=== PATIENT | female | born 1990 | race Caucasian/White ===

== ENCOUNTER 2019-11-01 12:51 | Inpatient (IN) | payer OTHER ==
[~2019-11-01] VITALS: Ht 165.1 cm; Wt 87.7 kg
[2019-11-01] VITALS (9 sets, daily range): BP systolic 112–151; BP diastolic 72–88
[2019-11-01] MEDS ORDERED: PREN29TA4 PO (13:30)
[2019-11-01] MEDS ORDERED: BENA25CA4 PO (13:30)
[2019-11-01] MEDS ORDERED: INSUN SC (13:30)
[2019-11-01] MEDS ORDERED: INSULIN IV RATE CHANGE DOCUMENTATION ML/HR XX SCH (13:45)
[2019-11-01] MEDS ORDERED: LR 1,000 ML IV SCH (14:00)
[2019-11-01] MEDS ORDERED: INSULIN HUMAN REGULAR 100 UNITS in NS 99 ML IV SCH (14:00)
[2019-11-01 14:52] LABS: HEMATOCRIT 38.4 % (36.0-47.0); HEMOGLOBIN 13.1 g/dl (12.0-15.5); MEAN CORPUSCULAR HEMOGLOBIN 30.6 pg (27.0-33.0); MEAN CORPUSCULAR HGB CONC 34.1 g/dl (32.0-36.5); MEAN CORPUSCULAR VOLUME 89.7 fl (80.0-96.0); PLATELET COUNT, AUTOMATED 338 10^3/uL (150-450); RED BLOOD COUNT 4.28 10^6/uL (4.00-5.40); WHITE BLOOD COUNT 16.5 10^3/uL (4.0-10.0)
[2019-11-01 15:12] LABS: BLOOD UREA NITROGEN 9 MG/DL (7-18); CALCIUM LEVEL 8.6 MG/DL (8.5-10.1); CARBON DIOXIDE LEVEL 23 MEQ/L (21-32); CHLORIDE LEVEL 111 MEQ/L (98-107); CREATININE FOR GFR 0.66 MG/DL (0.55-1.30); GLOMERULAR FILTRATION RATE > 60.0 (>60); GLUCOSE, FASTING 111 MG/DL (70-100); POTASSIUM SERUM 3.8 MEQ/L (3.5-5.1); SODIUM LEVEL 141 MEQ/L (136-145)
[2019-11-01] MEDS: miSOPROStol 25 MCG 1/4 TAB (S0191) SL SCH ×3 (15:26→23:50)
--- NOTE | 2019-11-01 15:56 | HPEPDOC ---
Obstetrical History & Physical General Date of Admission Nov 01, 2019 at 12:51 History of Present Illness patient is a 29 yo G1 @ 39+1wks gestation by LMP LORIE [id number] with GDMA2 on insulin presents for IOL. patient is currently on NPH 10u qhs. she has no concerns today. Information Provided By: Patient Age: 29 : 1 Term: 0 Pre-term: 0 Abortions: 0 Livin Care Care: Good Care Dating Final EDC: Nov 07, 2019 Final EDC for Daily Update: Nov 07, 2019 Final EDC by: LMP Past Medical History Past Obstetrical History : Past Obstetrical History: Primgravida Past Medical History Medical History denies Surgical History: Denies/None Social History Marital Status: Family situation: Spouse/partner home * Smoker: former Smoker Alcohol: Denies Drugs: denies Imunizations Tdap status: current Influenza Status: current Allergies Coded Allergies: No Known Allergies (Unverified , 11/01/19) Medications Scheduled Diphenhydramine HCl (Benadryl) 25 Mg Capsule, 50 MG PO QPM Prenat 115/Iron Fum/Folic/Dss ( 19 Tablet) 1 Each Tablet, 1 TAB PO DAILY Miscellaneous Medications Insulin Human NPH (Novolin N) 100 Unit/1 Ml Vial, 1 UNITS SC Physical Examination Physical Examination GENERAL: Alert and oriented times three. BREAST: . ABDOMEN: Gravid and non-tender to touch. FETUS: fetus is vertex (VTX) by Serafin and US. HEART RATE: Regular rate and rhythm. LUNGS: Clear to auscultation (CTA). EXTREMITIES: No edema/erythema/tenderness EFW:3400gm Vital Signs/I&O Vital Signs Date Time Temp Pulse Resp B/P (MAP) Pulse Ox O2 Delivery O2 Flow Rate FiO2 11/01/19 14:33 108 16 133/77 (95) 11/01/19 13:12 98.0 98 Room Air Laboratory Data 24H LABS Laboratory Tests 2 11/01/19 13:24: Serology Scanned Report Hepatitis B Testing 11/01/19 14:17: Bedside Glucose (Misc Panel) 112H 11/01/19 14:32: Nucleated Red Blood Cells % (auto) 0.0, Anion Gap 7L, Glomerular Filtration Rate > 60.0, Calcium Level 8.6 CBC/BMP Laboratory Tests 11/01/19 14:32 Pertinent Laboratoy Data Blood Type: O+ RBC Antibody Screen: Negative HIV: Negative Hepatitis B: Negative Rapid Plasma Reagin: Nonreactive Rubella: Immune Chlamydia/Gonorrhea: Negative Group B Streptococcus: Negative Glucose Tolerance Test: 143 (3hr: 100/194/158/142) Anatomy Ultrasound Placenta Location: Anterior Normal Anatomy: Yes Placenta Previa: No Vaginal Examination Dilation: None Station: Other Cervical Consistency: Firm Cervical Position: Posterior Presentation: Cephalic presentation Assessment Heart Rate (FHR): 155 Variability: Moderate Accelerations: Positive Decelerations: None Tocometer Contractions: No Assessment/Plan Assessment Patient is a 29 yo G1 @ 39+1wks gestation with GDMA2 on insulin admitted for IOL. Explained process of induction with patient starting with cervical ripening using medication and taylor balloon follows by AROM as well as oxytocin as indicated. External as well as internal monitoring of contractions and FHT discussed. Risks of emergent delivery, infection requiring antibiotics, bleeding requiring blood transfusion and associated risks, use of forceps or vacuum for operative vaginal delivery in an emergency, and episiotomy explained to patient. 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 Diet: Diabetic diet Group B Streptococcus (GBS) negative. Labs and intravenous (IV) per unit protocol. insulin drip protocol for GDMA2 Start IOL with cytotec then taylor bulb and pit as indicated pelvis adequate for trial of labor. DO JUANY james LUAT N. DO Nov 01, 2019 15:30
[2019-11-01] MEDS ORDERED: PROMETHAZINE INJ 25 MG/ML VIAL (J2550) IV ONE (22:00)
[2019-11-01] MEDS ORDERED: BUTORPHANOL 2 MG/ML INJ (J0595) IV ONE (22:00)
[2019-11-02] VITALS (26 sets, daily range): BP systolic 104–145; BP diastolic 55–89
[2019-11-02] MEDS: miSOPROStol 25 MCG 1/4 TAB (S0191) SL SCH ×5 (04:23→20:00)
[2019-11-02] MEDS ORDERED: BUTORPHANOL 2 MG/ML INJ (J0595) IV ONE (04:45)
[2019-11-02] MEDS: NS 1,000 ML IV SCH ×5 (14:00→22:00)
[2019-11-02] MEDS ORDERED: hydrOXYzine 50 MG TAB PO ONE (16:00)
--- NOTE | 2019-11-02 18:35 | IPN ---
DATE: 11/02/2019 A 29-year-old 1 at 39 and 1 weeks of gestation was admitted for induction of labor being a GDMA 2, on insulin. She was on NPH of 10 units at bedtime. Other than that she had no other significant risk factors. Blood type is O positive. Rest of the lab results are within normal limits. To date she had four lots of Cytotec, which was for cervical ripening. After her last dose she still maintained a cervix which was is closed, thick, and high. She does have polyhydramnios based on a more recent ultrasound. Presently the patient feels exhausted, and we did not entertain another lot of Cytotec. We explained to the patient that she has a category 1 strip. She has had two lots of intravenous (IV) medications for what she considers significant pain despite the fact she is having palpated contractions that are mild and do not meet the criteria of moderate or even severe with 100 Frannie units, so the plan of management was to allow her to rest, hydrate her, and when she wakes up from her sleep to attempt using Pitocin. On the last pelvic examination, the cervix was not negotiable for a Harrison bulb Harrison catheter. Her hemoglobin is 13.1, hematocrit 38.4, platelets are 338. She did not require an insulin drip. Her fasting sugars were 111. The rest the electrolytes were within normal limits, and her GFR is greater than 60. Her fingersticks, which were every 2 hours, were 79, 84, 82, 91, and 82. We have extended her glucose testing to every 4 hours. She is refusing to eat. She refuses to have a shower or get out of bed. Therefore, we are going to allow her to rest because of maternal exhaustion, and the plan of care moving forward will be Pitocin followed by an epidural followed by an artifical rupture of membranes (AROM). It is safe to proceed at the present time.
[2019-11-02] MEDS ORDERED: FENTANYL 2MCG/ML ROPIVACAINE 0.2% IN 0.9% NACL 100ML IVBAG As Ordered ONE (19:57)
[2019-11-02] MEDS ORDERED: diphenhydrAMINE INJ 50MG/ML VIAL (J1200) IV PRN (20:50)
[2019-11-02] MEDS ORDERED: NALOXONE INJ 0.4 MG/1 ML VIAL (J2310) IV PRN (20:50)
[2019-11-02] MEDS ORDERED: ONDANSETRON 4MG/2ML VIAL (J2405) IV PRN (20:50)
[2019-11-02] MEDS: FENTANYL/ROPIVACAINE/NACL BAG 100 ML EPIDURAL SCH (20:50)
[2019-11-02] MEDS ORDERED: LACTATED RINGER'S 1000 ML IV PRN (20:50)
[2019-11-02] MEDS ORDERED: REFRIGERATOR IV KEYS XX PRN (20:50)
[2019-11-02] MEDS ORDERED: EPIDURAL COMMENT XX SCH (20:50)
[2019-11-02] MEDS ORDERED: EPIDURAL/PCA KEYS XX PRN (20:50)
[2019-11-02] MEDS ORDERED: diphenhydrAMINE 50 MG CAP PO STA (21:34)
[2019-11-02] MEDS ORDERED: OXYTOCIN DRIP 30 UNITS in IV 1 EA IV SCH (21:45)
[2019-11-02] MEDS ORDERED: HumuLIN N INSULIN (NovoLIN N) PER UNIT SC SCH (22:00)
[2019-11-03] VITALS (29 sets, daily range): BP systolic 72–134; BP diastolic 50–81
[2019-11-03] MEDS: ePHEDrine SULFATE 25 MG/5 ML(5MG/ML) SYRINGE IV PRN ×2 (03:01→03:07)
[2019-11-03] MEDS: miSOPROStol 25 MCG 1/4 TAB (S0191) SL SCH ×2 (04:00)
[2019-11-03] MEDS: NS 1,000 ML IV SCH ×3 (06:00→17:30)
[2019-11-03] MEDS: FENTANYL/ROPIVACAINE/NACL BAG 100 ML EPIDURAL SCH ×2 (07:15→15:59)
--- NOTE | 2019-11-03 09:06 | IPNPDOC ---
Text Note Date of Service The patient was seen on 11/03/19. NOTE assumed care from Dr. Handy. patient induction restarted again after she received her epidural yesterday evening. She was fingertip at that time. After epidural, pitocin was started. This AM patient is comfortable. she think her water broke aroun 0830. pit: 10mU/min vitals: normal NAD fht: 150/mod mila/pos accel/no decel toco: ctx q3mins pelvic exam: grossly ruptured with clear fluid ce: /-2, taylor bulb placed with 80cc placed vaginally. a/p patient not in labor. cervical ripening with taylor bulb and pit. continue to monitor. Le, DO VS,Fishbone, I+O VS, Fishbone, I+O Vital Signs Date Time Temp Pulse Resp B/P (MAP) Pulse Ox O2 Delivery O2 Flow Rate FiO2 11/03/19 07:25 99.5 80 18 100/59 (73) Room Air 11/01/19 13:12 98 I&O- Last 24 Hours up to 6 AM 11/03/19 06:00 Intake Total 1697 ml Balance 1697 ml MARK HARRINGTON DO Nov 03, 2019 09:06
--- NOTE | 2019-11-03 14:27 | IPN ---
DATE: 11/02/2019 A 29-year-old 1 at 39-1 weeks' gestation was admitted for induction of labor because of being in a gestational diabetes mellitus (GDM) A2. She had four lots of Cervidil, which was ineffective. She currently is on NPH 10 units at bedtime. She has had fingersticks every 2-4 hours, which have been within normal limits. She has an acute and extreme anxiety disorder, which makes it extremely difficult to: A) Evaluate the patient and B) To progress with induction of labor. We elected, after having a lengthy discussion, to do an epidural followed by a pelvic examination, possibility of an artificial rupture of membranes (AROM) and/or Harrison bulb catheter and Pitocin. The patient had any acute attack when merely flushing the intravenous (IV) catheter in her arm and required sedation in order to calm her down. She also had two doses of Stadol and Phenergan. She did sleep with her antianxiety medications. Upon awakening, she did express the consent to have the epidural, which went reasonably well, after which we examined her. She was found to be a fingertip posterior -3 station, very long and closed, was not amenable to either an AROM or a Harrison bulb catheter. She is matt every six minutes of moderate intensity with a category one strip. Presently, she has an acute tachycardia because of an extreme anxiety issue. Temperature is 99.2. Our plan of management is to start the Pitocin, reevaluate her in two hours or possible AROM or Harrison bulb initiation. The patient expressed understanding despite her anxiety attack at the present time and a Harrison catheter is being placed in her bladder in order to keep of the bladder drained and monitor her output. The patient will receive her 10 units of NPH at bedtime and continue monitoring with fingersticks.
--- NOTE | 2019-11-03 15:06 | IPN ---
DATE: This lady is 29-year-old, 1 at 39 and 2 weeks of gestation was admitted for induction of labor. Gestational diabetes mellitus (GDM) A2, to presently on NPH at bedtime, is well controlled. Her significant risk factors, she has got extreme anxiety. She had four lots of Cytotec. The plan of care was to place an epidural and attempt Pitocin and artificial rupture of membranes (AROM); however, she was so anxious and out of control that it took us more than four hours to get her into a psychological space where we could do this. She has had two lots of Stadol. She has had one of hydroxyzine. She slept for two and half hours, then on awakening she did claim that it did nothing for her. However, she was amenable to having an epidural placed. After the epidural was placed, examination revealed the cervix which was fingertip posterior and the baby was a -3 station. She had Pitocin running overnight, maximum of 12 milliunits per minute. Baby had some occasional late decelerations, positional change and hydration fix at episode. Baby appears to like the left side and not the right side. We examined her this morning with contractions moderate intensity. She has changed her cervix. She is now about 80% effaced, fingertip anterior. We attempted to rupture membranes, were unable to get through that cervix at the present time. The patient did have one deceleration late at that time off examination and attempted AROM. Again, repositioned, placed on the left side, hydrated, baby went back to a category one strip. Plan at the present time is make sure baby is stabilized and the possibility of a primary section because of failure to dilate, failure to descend and intermittent late decelerations may be entertained.
--- NOTE | 2019-11-03 20:33 | IPNPDOC ---
Text Note Date of Service The patient was seen on 11/03/19. NOTE Was called at home and notified that patient has been pushing and is needed immediately for pending delivery. I was taking call at home. Arrived to hospital 20 minutes after call and Dr. Hale had attended delivery. uncomplicated otherwise. Le, DO VS,Fishbone, I+O VS, Fishbone, I+O Vital Signs Date Time Temp Pulse Resp B/P (MAP) Pulse Ox O2 Delivery O2 Flow Rate FiO2 11/03/19 18:35 99.3 72 17 104/58 (73) 11/03/19 07:25 Room Air 11/01/19 13:12 98 I&O- Last 24 Hours up to 6 AM 11/03/19 06:00 Intake Total 1697 ml Balance 1697 ml MARK HARRINGTON DO Nov 03, 2019 20:33
--- NOTE | 2019-11-03 21:15 | DNPDOC ---
[facility] Delivery Note Delivery Note DATE OF DELIVERY: 11/03/2019 PREDELIVERY DIAGNOSIS: 1) 39+2/7 weeks' gestation and labor. 2) GDMA2 on insulin POST DELIVERY DIAGNOSIS: 1) delivered 2) GDMA2 PROCEDURE: Spontaneous vaginal delivery DATABASE COORDINATOR: Dr. Christina Spangler DO ANESTHESIA: epidural ESTIMATED BLOOD LOSS: 250mL. FINDINGS: 7lbs 13oz female infant, Score 9/10 DELIVERY SUMMARY: Baby had delivered prior to my arrival. Pitocin bolus started. Placenta delivered spontaneously. Fundus massaged firm. Inspection revealed midline abrasion, not requiring repair. Baby and mother bonding when I left the room. EBL 250cc. DO JUANY Spangler LUAT N. DO Nov 03, 2019 21:15
[2019-11-03] MEDS ORDERED: OXYTOCIN DRIP 30 UNITS in IV 1 EA IV SCH (21:46)
[2019-11-03] MEDS ORDERED: DOCUSATE SODIUM 100 MG CAP PO PRN (22:00)
[2019-11-03] MEDS ORDERED: DIBUCAINE 1% OINTMENT 30GM TOP PRN (22:00)
[2019-11-03] MEDS ORDERED: RHOGAM 300 MCG (1500 IU) INJ (J2790) IM SCH (22:00)
[2019-11-03] MEDS ORDERED: MEASLES,MUMPS,RUBELLA VACCINE INJ (MMR-II) (90707) SC SCH (22:00)
[2019-11-03] MEDS: IBUPROFEN 800 MG TAB PO PRN (22:37)
[2019-11-03] MEDS: ACETAMINOPHEN TAB 650MG DOSE (2X325MG) PO PRN (23:53)
[2019-11-04] MEDS: IBUPROFEN 800 MG TAB PO PRN ×3 (06:30→21:59)
[2019-11-04 06:36] VITALS: BP 110/75
--- NOTE | 2019-11-04 06:37 | IPNPDOC ---
Progress Note Date of Service: Nov 04, 2019 Day#: 1 Progress Note SUBJECT: Patient is a 29 yo s/p ppd #1. Patient reports her right leg still feels numb. She is able to move all her toes, no trouble ambulating. She has been ambulating, voiding spontaneously without issue and tolerating regular diet. Patient would like to breast feeding. she has started on formula feeding. Desires oral contraceptive. OBJECTIVE: VITAL SIGNS: Within normal limits, afebrile. Alert and oriented times three. Abdomen: Fundus firm at U. Soft, NTTP. LE: mild non pitting edema, symmetrical, no erythema/tenderness muscle strength: 5/5 bilaterally of LE. A/P ppd #1, doing well. Encourage ambulation and breast feeding. recommends placing baby on breast first prior to using bottle. consult. contraceptive counseling. will discharge home with norqd, patient instructed to get different OCP if she does not bottle feed. continue routine ppc. anticipate d/c home on ppd#2. Crys, DO VS, I&O, 24H, Javier Vital Signs/I&O Vital Signs Date Time Temp Pulse Resp B/P (MAP) Pulse Ox O2 Delivery O2 Flow Rate FiO2 11/03/19 23:40 100.1 86 16 118/64 (82) 11/03/19 07:25 Room Air 11/01/19 13:12 98 I&O- Last 24 Hours up to 6 AM 11/04/19 06:00 Intake Total 6025 ml Output Total 2250 ml Balance 3775 ml Laboratory Data 24H LABS Laboratory Tests 2 11/03/19 10:27: Bedside Glucose (Misc Panel) 65L 11/03/19 13:11: Bedside Glucose (Misc Panel) 81 11/03/19 15:36: Bedside Glucose (Misc Panel) 58L 11/03/19 17:26: Bedside Glucose (Misc Panel) 88 11/04/19 06:20: Bedside Glucose (Misc Panel) 74 MARK HARRINGTON DO Nov 04, 2019 06:37
[2019-11-04] MEDS: PRENATAL VITAMINS CHEWABLE TABLET PO SCH (09:45)
[2019-11-04] MEDS: ACETAMINOPHEN TAB 650MG DOSE (2X325MG) PO PRN ×2 (09:45→20:26)
[2019-11-04 17:58] VITALS: BP 126/76
[2019-11-05] MEDS: ACETAMINOPHEN TAB 650MG DOSE (2X325MG) PO PRN ×2 (00:42→08:27)
[2019-11-05 06:11] VITALS: BP 104/69
[2019-11-05] MEDS: IBUPROFEN 800 MG TAB PO PRN ×2 (06:13→13:03)
--- NOTE | 2019-11-05 06:41 | IPNPDOC ---
Progress Note Date of Service: Nov 05, 2019 Day#: 2 Progress Note SUBJECT: Patient is a 29 yo s/p ppd #2. Patient reports her right f oot still feels numb. Improved from yesterday. She is ambulating without problem. Anesthesia will come and evaluate her this AM. She has been ambulating, voiding spontaneously without issue and tolerating regular diet. Patient would like to breast feeding. she has started on formula feeding. Desires oral contraceptive. OBJECTIVE: VITAL SIGNS: Within normal limits, afebrile. Alert and oriented times three. Abdomen: Fundus firm at U. Soft, NTTP. LE: mild non pitting edema, symmetrical, no erythema/tenderness muscle strength: 5/5 bilaterally of LE. A/P ppd #2, doing well. Encourage ambulation and breast feeding. discharge i nstructions. continue routine ppc. anticipate d/c home today. Le, DO VS, I&O, 24H, Fishbone Vital Signs/I&O Vital Signs Date Time Temp Pulse Resp B/P (MAP) Pulse Ox O2 Delivery O2 Flow Rate FiO2 11/05/19 06:11 97.9 60 20 104/69 (81) 96 11/03/19 07:25 Room Air I&O- Last 24 Hours up to 6 AM0 11/05/19 06:00 Intake Total 500 ml Balance 500 ml MARK HARRINGTON DO Nov 05, 2019 06:41
--- NOTE | 2019-11-05 06:42 | OBDS ---
[facility] Obstetrical Discharge Sum. Obstetrical Discharge Summary Liner Man/Provider: MARK HARRINGTON DO : 1 Term: 1 Pre-term: 0 Abortions: 0 Livin VDRL: Non-Reactive Rh: Positive Rubella: Immune Sex: Female Weight: pounds (7), ounces (13) Anesthesia: Regional Anesthesia A/P, Post Course List any complications Admission diagnosis: 1) gravid at 39+1wks 2) GDMA2 Discharge diagnosis: 1) 2) GDMA2 Condition at Discharge: stable Discharge Instructions: Home Activity: as tolerated Diet: regular Medications: filled at [facility] Follow-up: 2wks Hospital course: Patient was admitted for induction of labor at 39+1 wks gestation for GDMA2. She progressed to have a spontaneous vaginal delivery. course uncomplicated. Patient discharged on day #2. MARK HARRINGTON DO Nov 03, 2019 21:20
[2019-11-05] MEDS: PRENATAL VITAMINS CHEWABLE TABLET PO SCH (08:25)
[2019-11-05] MEDS ORDERED: DIBU10OI TOP (12:14)
[2019-11-05] MEDS ORDERED: IBUP80TA PO (12:14)
[2019-11-05] MEDS ORDERED: DOCU100C16 PO (12:14)
== END 2019-11-05 13:20 | disposition home or self-care (01) | DRG 807 ==
LOC: M LDI 12:51 → M OBS 11-03 23:24
PROVIDERS: ADMIT Obstetrics & Gynecology; ATTEND Obstetrics & Gynecology
PROC: 3E0P7GC Introduction of Other Therapeutic Substance into Female Reproductive, Via Natural or Artificial Opening (ICD-10-PCS; 2019-11-01)
PROC: 10E0XZZ Delivery of Products of Conception, External Approach (ICD-10-PCS; principal; 2019-11-03)
DX: O24.424 Gestational diabetes mellitus in childbirth, insulin controlled (principal); Z37.0 Single live birth; Z3A.39 39 weeks gestation of pregnancy; O40.3XX0 Polyhydramnios, third trimester, not applicable or unspecified; O99.344 Other mental disorders complicating childbirth; F41.9 Anxiety disorder, unspecified

== ENCOUNTER 2020-09-23 13:12 | Inpatient (IN) | payer OTHER ==
[~2020-09-23] VITALS: Ht 165.1 cm; Wt 83.4 kg
[~2020-09-23 13:12] MED LIST: BENA25CA4 PO; DIBU10OI TOP; DOCU100C16 PO; IBUP80TA PO; INSUN SC; PREN29TA4 PO
[2020-09-23 13:29] VITALS: BP 136/83
[2020-09-23] MEDS ORDERED: ZOLO50TA PO (13:39)
[2020-09-23] MEDS ORDERED: ACET-683 PO (13:39)
[2020-09-23] MEDS ORDERED: BAKING SODA PO (13:40)
[2020-09-23] MEDS ORDERED: LR 1,000 ML IV SCH (15:09)
[2020-09-23] MEDS ORDERED: NOVOINJ13 SC (15:11)
[2020-09-23 16:02] VITALS: BP 114/69
[2020-09-23 16:19] LABS: GLUCOSE,RANDOM 78 MG/DL (LESS THAN 200)
--- NOTE | 2020-09-23 17:10 | HPEPDOC ---
Obstetrical History & Physical General Date of Admission Sep 23, 2020 at 13:12 History of Present Illness 30yo krys [id number] @39+2, O+, GBS-, presenting for IOL for A2GDM Chief Complaint: Other (A2GDM) Information Provided By: Patient Age: 30 : 2 Term: 1 Pre-term: 0 Abortions: 0 Livin Care Care: Good Care Dating Final EDC: Sep 28, 2020 Final EDC for Daily Update: Sep 28, 2020 Final EDC by: 1st trimester (US) 1st Trimester Date: Feb 21, 2020 Weeks + Days: 8 (+4) Estimated Date of Confinement: Sep 28, 2020 EGA at Admission: 39 (+2) Antepartum Course Diagnos(e)s A2GDM, close interval , anxiety Height (inches): 65 Pre- weight (lbs.): 160 Admission Weight (lbs.): 184 Change in Weight (lbs.): 24 Past Medical History Past Obstetrical History : Past Obstetrical History: Multigravida Date of Delivery: Nov 03, 2019 Gestation: 39 (+2) Type of Delivery: Spontaneous Vaginal Del. Weight of Infant (grams): 3500 Past Medical History Medical History migraines, A2GDM, varicose veins Surgical History: Denies/None Family History Significant Family History: No pertinent family hx Social History Marital Status: Family situation: Spouse/partner home Psychosocial History: Anxiety * Smoker: non-smoker Alcohol: Denies Drugs: denies Imunizations Tdap status: current Allergies Coded Allergies: No Known Allergies (Unverified , 11/01/19) Medications Scheduled Insulin NPH Human Isophane (Novolin N) 100 Unit/1 Ml Vial, 8 UNITS SC QHS Prenat 115/Iron Fum/Folic/Dss ( 19 Tablet) 1 Each Tablet, 1 TAB PO DAILY Sertraline Hcl (Zoloft) 50 Mg Tablet, 1 TAB PO DAILY Scheduled PRN Acetaminophen (Acetaminophen) 500 Mg Tablet, 1-2 TABS PO Q6HP PRN for DISCOMFORT [Baking Soda] , 1 TSP PO QHSP PRN for INDIGESTION Physical Examination Physical Examination GENERAL: Alert and oriented times three. BREAST: . ABDOMEN: Gravid and non-tender to touch. FETUS: Is vertex (VTX) by sterile vaginal examination (SVE), fetus is vertex (VTX) by Serafin, confirmed on TAUS. HEART RATE: Regular rate and rhythm. LUNGS: Clear to auscultation (CTA). EXTREMITIES: No edema. No clonus. Vital Signs/I&O Vital Signs Date Time Temp Pulse Resp B/P (MAP) Pulse Ox O2 Delivery O2 Flow Rate FiO2 09/23/20 13:30 110 99 Room Air 09/23/20 13:29 98.3 20 136/83 (100) Laboratory Data 24H LABS Laboratory Tests 2 09/23/20 13:18: Serology Scanned Report Hepatitis B Testing 09/23/20 15:29: CBC/BMP Urine Culture: No Growth Pertinent Laboratoy Data Blood Type: O+ RBC Antibody Screen: Negative HIV: Negative Hepatitis B: Negative Rapid Plasma Reagin: Nonreactive Rubella: Immune Varicella: Immune Chlamydia/Gonorrhea: Negative Group B Streptococcus: Negative Quad Screen Test: Negative Cystic Fibrosis: Negative Anatomy Ultrasound Placenta Location: Anterior Normal Anatomy: Yes Placenta Previa: No Vaginal Examination Dilation: 3 cm (cervical catheter placed and filled to 60/60 with exam) Effacement: 50% Station: -2 Cervical Consistency: Medium Cervical Position: Posterior Presentation: Cephalic presentation Position: Vertex (occiput) Assessment Heart Rate (FHR): 140 Variability: Moderate Accelerations: Positive Decelerations: None Tocometer Contractions: Yes Frequency: irregular Duration: less than 60 seconds Strength: palpated as mild, resting tone palp/soft Multi-drug resistant Organism: No history of MDRO Assessment/Plan Assessment Annetta is a 30-year-old (G)2 para (P)1 at 39+2 weeks by 8+4-week ultrasound. Presents to Labor and Delivery (L&D) for IOL for A2GDM. Plan Admit and orient. Trouble Lineman and consent for labor and delivery. Diet: clear liquid. Group B Streptococcus (GBS) negative. Labs and intravenous (IV) per unit protocol. Counseled on Pitocin and induction of labor (IOL) and cervical catheter. Lactated Ringers (LR): at 125 mL/hr. Anticipate normal spontaneous delivery (). C-S as appropriate. DARRELL SWENSON CNM Sep 23, 2020 17:10
[2020-09-23] MEDS ORDERED: OXYTOCIN DRIP 30 UNITS in IV 1 EA IV SCH (17:45)
[2020-09-23 17:48] VITALS: BP 119/64
[2020-09-23 18:17] VITALS: BP 121/70
[2020-09-23 18:28] LABS: HEMATOCRIT 39.3 % (36.0-47.0); HEMOGLOBIN 13.2 g/dl (12.0-15.5); MEAN CORPUSCULAR HEMOGLOBIN 30.7 pg (27.0-33.0); MEAN CORPUSCULAR HGB CONC 33.6 g/dl (32.0-36.5); MEAN CORPUSCULAR VOLUME 91.4 fl (80.0-96.0); PLATELET COUNT, AUTOMATED 183 10^3/uL (150-450); WHITE BLOOD COUNT 14.1 10^3/uL (4.0-10.0)
[2020-09-23 18:48] VITALS: BP 121/66
[2020-09-23 20:03] VITALS: BP 133/71
[2020-09-23] MEDS ORDERED: CALCIUM CARBONATE 500 MG CHEW U/D PO ONE (20:15)
[2020-09-23] MEDS ORDERED: GLUCOSE 4GM CHEW TABLET PO PRN (20:15)
[2020-09-23] MEDS ORDERED: DEXTROSE 50% 50 ML SYRINGE IV PRN (20:15)
[2020-09-23] MEDS ORDERED: GLUCAGON INJ 1MG VIAL SC PRN (20:15)
--- NOTE | 2020-09-23 21:44 | IPNPDOC ---
Text Note Date of Service The patient was seen on 09/23/20. NOTE Accepting care of Annetta this evening. She's a 30 yo at 39+2 weeks gestation who was admitted for an IOL for GDMA2. She requires 8u NPH nightly to control her blood sugars. Her induction was started just recently with a cook balloon and low dose pitocin. FHR Cat I with moderate variability, +accels, no decels. Most recent blood sugar was 92. Will check Q2H for now. ISS has been ordered for coverage. Plan to continue with pitocin. Epidural anesthesia if and when desired. All patient questions answered. Charisse Abel DO VS,Javier, I+O VS, Javier, I+O Laboratory Tests 09/23/20 15:29 Vital Signs Date Time Temp Pulse Resp B/P (MAP) Pulse Ox O2 Delivery O2 Flow Rate FiO2 09/23/20 20:03 83 133/71 (91) 09/23/20 18:48 16 09/23/20 17:48 98.8 98 Room Air CHARISSE ABEL DO Sep 23, 2020 21:44
[2020-09-23] MEDS ORDERED: FENTANYL 2MCG/ML ROPIVACAINE 0.2% IN 0.9% NACL 100ML IVBAG As Ordered ONE (21:57)
[2020-09-23] MEDS ORDERED: NALOXONE INJ 0.4MG/1ML VIAL (J2310 PER 1MG) IV PRN (23:15)
[2020-09-23] MEDS ORDERED: diphenhydrAMINE 50MG/ML VIAL (J1200) IV PRN (23:15)
[2020-09-23] MEDS ORDERED: REFRIGERATOR IV KEYS XX PRN (23:15)
[2020-09-23] MEDS ORDERED: LACTATED RINGER'S 1000 ML IV PRN (23:15)
[2020-09-23] MEDS ORDERED: EPIDURAL/PCA KEYS XX PRN (23:15)
[2020-09-23] MEDS ORDERED: EPIDURAL COMMENT XX SCH (23:15)
[2020-09-23] MEDS ORDERED: ONDANSETRON 4MG/2ML VIAL IV PRN (23:15)
[2020-09-23] MEDS ORDERED: FENTANYL/ROPIVACAINE/NACL BAG 100 ML EPIDURAL SCH (23:15)
[2020-09-24] VITALS (28 sets, daily range): BP systolic 85–130; BP diastolic 48–73
[2020-09-24] MEDS: ePHEDrine SULFATE 25 MG/5 ML(5MG/ML) SYRINGE IV PRN ×2 (00:57→01:19)
[2020-09-24] MEDS ORDERED: ACETAMINOPHEN TAB 650MG DOSE (2X325MG) PO PRN (05:00)
[2020-09-24] MEDS ORDERED: OXYTOCIN DRIP 30 UNITS in IV 1 EA IV SCH (05:00)
[2020-09-24] MEDS ORDERED: DOCUSATE SODIUM 100MG CAPSULE PO PRN (05:00)
[2020-09-24] MEDS ORDERED: MEASLES,MUMPS,RUBELLA VACCINE INJ (MMR-II) (90707) SC SCH (05:00)
[2020-09-24] MEDS ORDERED: RHOGAM 300 MCG (1500 IU) INJ (J2790) IM SCH (05:00)
[2020-09-24] MEDS ORDERED: PROMETHAZINE 25 MG TAB PO PRN (05:00)
[2020-09-24] MEDS ORDERED: BENZOCAINE 20% HEMORRHOIDAL OINTMENT 28GM TUBE TOP PRN (05:00)
[2020-09-24] MEDS ORDERED: IBUPROFEN 800 MG TAB PO PRN (05:00)
--- NOTE | 2020-09-24 05:07 | DNPDOC ---
[facility] Delivery Note Delivery Note DATE OF DELIVERY: 24Sep2020 at ~0430 PREDELIVERY DIAGNOSIS: 39+3 weeks gestation and IOL for GDMA2 POST DELIVERY DIAGNOSIS: Delivered. PROCEDURE: Spontaneous vaginal delivery INTERNAL AUDIT MANAGER: Dr. Abel ANESTHESIA: Neuraxial (Epidural). ESTIMATED BLOOD LOSS: 200 mL. FINDINGS: 7 pound 9 ounce (3430 grams) female , Score 9/9 DELIVERY SUMMARY: Annetta progressed steadily with pitocin and ultimately received an epidural. Her membranes spontaneously ruptured (clear fluid) and she felt a strong urge to push. The bed was broken down and she was prepped for delivery. With excellent effort over only about 10 minutes of pushing, her baby delivered. Presentation was JORGE with restitution to LOT. The right anterior shoulder then delivered with gentle traction followed easily by the remainder of the body. The infant was dried and stimulated on the field and a bulb suction was used. The was placed on the maternal abdomen and cried vigorously. The three vessel umbilical cord was then clamped and cut by the FOB after appropriate time delay and under my direction. Third stage was completed with gentle traction on on the cord and it was productive of an intact placenta. The uterus was firmed with massage and pitocin was administered IV bolus. Inspection of the cervix, vagina, labia, and perineum revealed a midline first degree perineal laceration. This was repaired with 3-0 vicryl suture in the usual fashion. There was excellent cosmesis and hemostasis after the repair. The fundus was palpated again and was firm. Sponge, instrument, and needle counts were correct X2. Mother and stable when I left the room. DO CLOVER Mitchell CHRISTOPHER J. DO Sep 24, 2020 05:07
[2020-09-24] MEDS ORDERED: HumaLOG INSULIN (NovoLOG) PER UNIT SC SCH (07:30)
[2020-09-24] MEDS: PRENATAL VITAMINS CHEWABLE TABLET PO SCH (07:37)
[2020-09-24] MEDS: IBUPROFEN 600MG TAB PO PRN ×2 (07:38→19:40)
[2020-09-24] MEDS: ACETAMINOPHEN 500 MG TAB PO PRN ×2 (10:35→18:51)
[2020-09-24] MEDS ORDERED: SERTRALINE HCL 50 MG TAB PO SCH (21:00)
[2020-09-25] MEDS: ACETAMINOPHEN 500 MG TAB PO PRN (00:54)
[2020-09-25 06:00] VITALS: BP 115/66
--- NOTE | 2020-09-25 07:11 | IPNPDOC ---
Progress Note Date of Service: Sep 25, 2020 Day#: 1 Progress Note SUBJECT: 30-year-old 2 now Para 2 status post uncomplicated spontaneous vaginal delivery at 39.3 weeks' of a MALE 7 pounds 9 ounces 3430 grams) with post vaginal laceration and repair, doing well day # 1 . She has been ambulating, voiding spontaneously without issue and tolerating regular diet. Breast feeding without issue. Reports lochia is [like a normal period]. Patient is ambulating well. [Reports some cramping with . Denies any pain. Voiding and stooling without difficulty]. OBJECTIVE: VITAL SIGNS: Within normal limits, afebrile. Alert and oriented times three. Breath sounds clear to auscultation. Heart rate: Regular rate and rhythm, no murmurs, rubs or gallops. Abdomen: Fundus firm at U-2. Soft, NTTP. [Minimal] lochia. ASSESSMENT: 30 -year-old 2 now Para 2 status post uncomplicated spontaneous vaginal delivery after presenting FOR IOL AT 39 WEEKS AGDM 2 INSULIN , delivered 39.3 weeks', doing well on day 1 . Vitals within normal limits, afebrile, hemodynamically stable with no evidence of infection. PLAN: 1. Discharge to home today. 2. Tylenol and Motrin for pain. 3. Encourage breast feeding and ambulation. 4.DISCUSS AT 6 WEEK PP VISIT . 5. Routine PP visit in 6 weeks in clinic. 6. Discussed return precautions at length. Item Value Date Time White Blood Count 14.1 10^3/uL H 09/23/20 1529 Red Blood Count 4.30 10^6/uL 09/23/20 1529 Hematocrit 39.3 % 09/23/20 1529 Hemoglobin 13.2 g/dl 09/23/20 1529 Mean Corpuscular Volume 91.4 fl 09/23/20 1529 Mean Corpuscular Hemoglobin 30.7 pg 09/23/20 1529 Mean Corpuscular Hemoglobin Concent 33.6 g/dl 09/23/20 1529 Red Cell Distribution Width 13.1 % 09/23/20 1529 Platelet Count 183 10^3/uL 09/23/20 1529 Nucleated Red Blood Cells % (auto) 0.0 % 09/23/20 1529 VS, I&O, 24H, Fishbone Vital Signs/I&O Vital Signs Date Time Temp Pulse Resp B/P (MAP) Pulse Ox O2 Delivery O2 Flow Rate FiO2 09/25/20 06:00 98.5 64 18 115/66 (82) 09/23/20 17:48 98 Room Air Aaron Handy MD Sep 25, 2020 07:08
[2020-09-25] MEDS ORDERED: DOK1CAP7 PO (07:15)
[2020-09-25] MEDS ORDERED: SERT50TA29 PO (07:15)
[2020-09-25] MEDS ORDERED: IBUP-1022 PO (07:15)
[2020-09-25] MEDS: PRENATAL VITAMINS CHEWABLE TABLET PO SCH (08:41)
[2020-09-25] MEDS ORDERED: INFLUENZA QUADRIVALENT PF VACCINE 0.5ML SYRINGE IM ONE (09:00)
[2020-09-25 18:05] VITALS: BP 121/75
--- NOTE | 2020-09-27 08:59 | IPN ---
PROGRESS NOTE DATE: 09/24/2020 This patient requested circumcision of her male . After discussing risks and benefits of circumcision, the medical and the nonmedical indications, the penile block and aftercare; expressed understanding of penile block, aftercare, and bleeding. Signed the consent form. All questions were answered, 20 minute discussion. We await the clearance by the [employer]ic systems safety engineer.
== END 2020-09-25 19:15 | disposition home or self-care (01) | DRG 807 ==
LOC: M LDI 13:12 → M OBS 09-24 06:50
PROVIDERS: ADMIT Registered Nurse; ATTEND Obstetrics & Gynecology
PROC: 3E033VJ Introduction of Other Hormone into Peripheral Vein, Percutaneous Approach (ICD-10-PCS; 2020-09-23)
PROC: 10E0XZZ Delivery of Products of Conception, External Approach (ICD-10-PCS; principal; 2020-09-24)
PROC: 0HQ9XZZ Repair Perineum Skin, External Approach (ICD-10-PCS; 2020-09-24)
DX: O24.424 Gestational diabetes mellitus in childbirth, insulin controlled (principal); Z37.0 Single live birth; Z3A.39 39 weeks gestation of pregnancy; O70.0 First degree perineal laceration during delivery